=== PATIENT | female | born 1950 | race Caucasian/White ===

== ENCOUNTER → 2017-08-08 | Day surgery (SDC) | payer OTHER ==
[~2017-08-08] MED LIST: PERCOCET 5/3251 TAB PO; SYNTHROID50 MCG PO
== END | disposition home or self-care (01) ==
LOC: ADM 08-02 13:00 → AMB-ENDOS 07:00
DX: D12.3 Benign neoplasm of transverse colon (principal)

== ENCOUNTER → 2021-01-26 | Day surgery (SDC) | payer OTHER | END | disposition home or self-care (01) | LOC: ADM 01-23 13:30 → AMB-ENDOS 06:44 | PROVIDERS: ATTEND Surgery | DX: K62.89 Other specified diseases of anus and rectum (principal); Z20.822 Contact with and (suspected) exposure to COVID-19 ==